=== PATIENT | female | born 1950 | race Caucasian/White ===

== ENCOUNTER 2017-08-24 09:34 | Emergency (ER) | payer MEDICARE ==
[2017-08-24] MEDS ORDERED: CRESTOR5 M1 (09:54)
[2017-08-24] MEDS ORDERED: ZESTRIL/PRINIV2.5 MG PO (09:54)
[2017-08-24] MEDS ORDERED: METFORMIN500 M1 PO (09:55)
[2017-08-24 11:05] VITALS: BP 155/68
== END 2017-08-24 11:05 | disposition home or self-care (01) ==
LOC: ED 09:34
DX: T78.3XXA Angioneurotic edema, initial encounter (principal); I10 Essential (primary) hypertension